=== PATIENT | female | born 1960 | race African-American/Black ===

== ENCOUNTER → 2021-07-16 | Outpatient (CLI) | payer OTHER, BC ==
--- NOTE | 2021-07-16 16:31 | KCIC ---
Indication: Postmenopausal screening for osteoporosis.. COMPARISON: None available. Bone Density: -BMD: (g/cm2) - AP Spine Total (L1-L4)..........0.916. - Total left Hip.................0.766. T-Score: - AP Spine Total (L1-L4).........-1.2. - Total left Hip.................-1.4. Z-Score: - AP Spine Total (L1-L4)..........-0.3. - Total left Hip.................-0.8. World Health Organization criteria for BMD interpretation classify patients as Normal (T-score at or above -1.0), Osteopenic (T-score between -1.0 and -2.5), or Osteoporotic (T-score at or below -2.5). Impression: 1. AP Spine Total L1-L4---osteopenia. 2. Total left Hip---osteopenia. Electronically signed by: Ok Leyva MD (07/16/2021 4:29 PM) [id number]
== END ==
LOC: KCIC DEXA 15:35
PROVIDERS: ATTEND Internal Medicine
DX: M85.89 Other specified disorders of bone density and structure, multiple sites (principal); Z78.0 Asymptomatic menopausal state
CPT/HCPCS: 77080